=== PATIENT | male | born 1990 | race Caucasian/White ===

== ENCOUNTER 2024-09-26 20:31 | Emergency (ER) | payer MEDICAID, SELFPAY ==
[2024-09-26 20:34] VITALS: BMI 18.1
[2024-09-26 20:36] VITALS: BP 143/89; PULSE 92; RESP 18; TEMP 36.8; O2SAT 96
[2024-09-26 20:37] VITALS: BMI 23.7
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
== END 2024-09-26 21:09 ==
LOC: SERX 21:01
PROVIDERS: Emergency Provider Emergency Medicine
DX: Z02.89 Encounter for other administrative examinations (principal)
CPT/HCPCS: 99281

== ENCOUNTER 2025-07-09 16:22 | Emergency (ER) | payer MEDICAID, SELFPAY ==
[2025-07-09 16:39] VITALS: BP 123/63; PULSE 82; RESP 18; TEMP 37.1; O2SAT 97
--- NOTE | 2025-07-09 16:46 | XR_ITS ---
Examination: Foot, right, 3 views Technique: AP, oblique, lateral views foot, 3 views Date and time of exam: July 09, 2025 1548 hours INDICATIONS: Injured the foot today, foot pain. FINDINGS: No acute fracture. No dislocation No foreign body IMPRESSION: No acute fracture
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
== END 2025-07-09 19:59 | disposition home or self-care (01) ==
PROVIDERS: Emergency Provider Emergency Medicine; PCP Family Medicine
DX: S93.601A Unspecified sprain of right foot, initial encounter (principal); W16.512A Jumping or diving into swimming pool striking water surface causing other injury, initial encounter
CPT/HCPCS: 73630; 99283